=== PATIENT | male | born 1965 | race Caucasian/White ===

== ENCOUNTER 2022-08-30 10:22 | Inpatient (IN) | payer OTHER, SELFPAY ==
[2022-08-30] VITALS (45 sets, daily range): BP systolic 124–185; BP diastolic 59–107; PULSE 49–91; RESP 14–21; TEMP 35.9–36.9; O2SAT 96–100; BMI 32.1; BMI 31.9
--- NOTE | 2022-08-30 07:47 | SUR.PREOP ---
registration called around 0720 (after they told us patient was ready and was brought up to [facility]) stating patient does not have authorization and cannot proceed with procedure. patient/updated and awaiting chairman & chief executive officer office to open to determine plan.
[2022-08-30 08:20] LABS: Basophils Percent Auto 0.2 % (0.2-1.2); Eosinophils Absolute Auto 0.1 K/mm3 (0-0.3); Eosinophils Percent Auto 1.1 % (0-4.4); Hematocrit 47.5 % (42.0-52.0); Hemoglobin 15.7 g/dL (14.0-18.0); Immature Granulocyte Absolute 0.01 K/mm3 (0.00-0.031); Immature Granulocyte Percent A 0.2 % (0-0.5); Lymphocytes Absolute Auto 1.62 K/mm3 (0.9-3.2); Lymphocytes Percent Auto 28.6 % (18.3-44.2); Mean Corpuscular HGB Conc 33.1 g/dl (32-36); Mean Corpuscular Hemoglobin 31.2 pg (26-34); Mean Corpuscular Volume 94.4 fl (80-100); Mean Platelet Volume 9.6 fl (7.4-10.4); Monocytes Absolute Auto 0.5 K/mm3 (0.1-0.6); Monocytes Percent Auto 7.9 % (2.6-8.5); Neutrophils Absolute Auto 3.5 K/mm3 (1.3-6.7); Platelet Count Result 195 k/mm3 (150-375); Red Blood Count 5.03 M/mm3 (4.6-6.20); White Blood Count 5.7 K/mm3 (4.5-10.0)
[2022-08-30 08:29] LABS: Anion Gap 5 mmol/L (8-16); Blood Urea Nitrogen 17 mg/dL (9-20); Calcium 8.9 mg/dL (8.4-10.2); Carbon Dioxide 29 mmol/L (22-30); Chloride 107 mmol/L (98-107); Estimated Glomerular Filt Rate > 60; Glucose 98 mg/dL (65-110); Potassium 4.3 mmol/L (3.4-5.0); Sodium 141 mmol/L (137-145)
[2022-08-30] MEDS: SODIUM CHLORIDE 0.9% IV 500 ML 100 ML IV CONT (08:45)
--- NOTE | 2022-08-30 09:20 | WPDMODSED ---
Moderate Sedation Note-Pt Data Patient Data Diagnosis: Chest pain clinically atypical of angina abnormal nuclear stress test Present Complaint: no complaints this morning Procedure to be performed/Plan: left heart catheterization Allergies Allergy/AdvReac Type Severity Reaction Status Date / Time Penicillins Allergy Unknown Verified 08/30/22 08:16 Home Medications Medication Instructions Recorded Confirmed Type aspirin 81 mg tablet,delayed 81 mg PO DAILY 08/30/22 08/30/22 History release carvedilol 3.125 mg tablet 3.125 mg PO BID 08/30/22 08/30/22 History guselkumab 100 mg/mL subcutaneous 100 mg subcut ONCE 08/30/22 08/30/22 History syringe (Tremfya) ibuprofen 200 mg tablet 400 mg PO Q6H PRN Pain 08/30/22 08/30/22 History Current Medications: Active Medications Sodium Chloride (Normal Saline Iv) 500 mls @ 100 mls/hr IV CONT .Q5H [facility] Sedation/Anesthesia: No previous sedation/anesthesia problems (including family history). [facility] Social History Social History (System 12/02/19 @ 12:56 by Josselyn Nguyen) Smoking packs per day: 1 Smoking cigarettes per day: 20.0 Years smoked: 50 Smoking pack-years: 50.00 Smoking status: Current every day smoker Second hand tobacco smoke exposure: Yes Substance use: current Substance use type: marijuana Living arrangements: alone Spiritual care concerns: No Mod Sed Physical Exam Physical Exam Pre Procedural Exam: Normal: Neck, Throat, Airway, Lungs, Heart Size, Heart Rate, Heart Rhythm, Neuro Exam and Extremities and Variation: Appearance ( overweight white male no apparent distress) Hours since solid foods: 12 Hours since liquid intake: 12 Mallampati Classification: class II Internal Medicine - PN: Obj Da Vital Signs Vital Signs: Vital Signs - 24 hr 08/30/22 08:44 Temperature 36.3 C L Pulse Rate 63 Respiratory Rate 18 Blood Pressure 169/81 H Pulse Oximetry 100 Oxygen Delivery Room Air Meds/Results Medications: Active Medications Generic Name Dose Route Start Last Admin Trade Name Freq PRN Reason Stop Dose Admin Sodium Chloride 500 mls @ 100 mls/hr 08/30/22 07:00 Normal Saline Iv IV CONT .Q5H [facility] Labs 08/30/22 08:14 08/30/22 08:14 Labs: Laboratory Results - last 24 hr 08/30/22 08/30/22 08:14 08:14 WBC 5.7 RBC 5.03 Hgb 15.7 Hct 47.5 MCV 94.4 MCH 31.2 MCHC 33.1 RDW 13.0 Plt Count 195 MPV 9.6 Immature Gran % (Auto) 0.2 Neut % (Auto) 62.0 Lymph % (Auto) 28.6 [place] % (Auto) 7.9 Eos % (Auto) 1.1 Baso % (Auto) 0.2 Lymph # (Auto) 1.62 [place] # (Auto) 0.5 Eos # (Auto) 0.1 Baso # (Auto) 0.0 Abs Immat Gran (auto) 0.01 Absolute Neuts (auto) 3.5 Absolute Nucleated RBC 0.0 Nucleated RBC % 0.0 Sodium 141 Potassium 4.3 Chloride 107 Carbon Dioxide 29 Anion Gap 5 L BUN 17 Creatinine 1.00 Estim Creat Clear Calc Not Reportable Estimated GFR > 60 Glucose 98 Calcium 8.9 ASA Classification/Sedation ASA Classification/Sedation ASA Class: II Emergent: No Risks: Risks, benefits and alternatives explained and patient/family accepted plan for sedation. Patient re-evaluated immediately prior to sedation.
--- NOTE | 2022-08-30 10:22 | ECG_ITS ---
Measurements Intervals [place] Rate: 45 P: -14 VT: 180 QRS: -37 QRSD: 100 T: -15 QT: 454 QTc: 394 Interpretive Statements SINUS BRADYCARDIA LEFT AXIS DEVIATION ST-T WAVE ABNORMALITY IN INFERIOR LEADS- CONSIDER ISCHEMIA BASELINE WANDER- V2-V3 ABNORMAL ECG COMPARED TO ECG 03/02/2019 10:37:21 SINUS BRADYCARDIA NOW PRESENT ST-T WAVE ABNORMALITY NOW PRESENT Electronically Signed On 08-30-2022 11:03:52 ORAL SURGERY TECHNICIAN by Beto Virgen D.O.
--- NOTE | 2022-08-30 10:25 | WPDCARDPROC ---
Cardiac Cath Procedure Note Date of procedure:: 08/30/22 Performing physician:: Juan Penny MD Indication:: chest pain with atypical features for angina Brief clinical history:: this is a 56-year-old man without previous history of coronary disease he does have a remote history of SVT. Recently he has been having intermittent chest pain both with and without exertion. A nuclear stress test was abnormal for inferoseptal ischemia as result of this an angiogram has been recommended Procedure Procedure performed:: left ventriculogram coronary angiogram PCI (CECIL) to the mid LAD Sedation/Medication given:: fentanyl 50 mg Versed 2 mg case start time 9:28 a.m. case end time 10:16 a.m. sedation provided by Vikki Bone RN, trained observer Access site:: right femoral artery Estimated blood loss:: 50 cc Procedure note:: the patient was brought to the cardiac catheterization lab in the postabsorptive state where the right femoral triangle was prepared and draped in the normal fashion. Anesthesia was provided with 1% lidocaine infiltrated locally. Using the modified Seldinger technique a 5 [place] sheath was placed into the right femoral artery and left heart catheterization was carried out. Initially a 5 [place] pigtail catheter was used to measure left-sided hemodynamics and to inject LV g in [place] projection. Following this a standard 5 [place] FL4 catheter was used to engage and inject the left coronary artery in multiple projections and a 5 [place] JR4 catheter was used to engage and inject the right coronary artery. The cineangiograms were then reviewed following which PCI of the LAD with recommended carried out as detailed below prior to PCI 5 [place] sheath was exchanged over a guidewire for 6 [place] sheath. The patient was given aspirin 600 mg of clopidogrel and had bolus and infusion of Angiomax for procedural anticoagulation. Following this PCI of the LAD was carried out as detailed below. The procedure was complicated by occlusion of the 2nd diagonal branch which is also detailed below. 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 The electrocardiogram showed no significant abnormalities on the monitor lead. Patient otherwise was hemodynamically stable there is no evidence of groin hematoma or any other complications following the procedure. Findings:: Hemodynamics: Central aortic pressure is 138 over 70 left ventricle 138/3 end-diastolic 18 there is no systolic gradient on pullback across the aortic valve. Left ventricle: The LV is normal in size all segments contract appropriately the global ejection fraction at visually estimated to be 50% there were no regional wall motion abnormalities. The left main coronary artery is widely patent the left anterior descending is a moderate caliber artery extending down to the apex. The LAD has a high-grade 95% stenosis which is somewhat long tubular stenosis just after the origin of the 2nd diagonal branch. This is a moderate-sized diagonal. The remainder of the LAD is free of significant disease. Circumflex is a moderate caliber artery giving rise to marginal branches the circumflex system appears to be smooth and free of disease. The right coronary artery is moderate to large caliber dominant to the posterior circulation there are minimal luminal irregularities in the RCA but no functionally significant disease is identified. Intervention: The left coronary artery was engaged using a 6 [place] CLS 3.5 guiding catheter. I used a 0.014 BMW coronary guidewire to traverse the target lesion described above the lead wire was advanced into the apical portion of the LAD. The lesion was pre-dilated using a 3.0 x 20 mm noncompliant balloon. The target lesion was then stented using a 3.5 by 22 mm [employer] stent with an excellent anatomical result in the LAD.
--- NOTE | 2022-08-30 10:32 | SUR.PHASEII ---
Pt arrived to [facility] post procedure, pt pale and diaphoretic, reports pain 9/10 to left upper chest. Dr. Penny aware and has previously treated the pt with pain medications in lab aide. Dr. Penny came to bedside and was updated on the pt condition and ordered additional medication and discussed finding with pt and . Pharmacy called to request IV valium that is not stocked in [facility] department. VSS, side rails up x 2, continue to monitor.
[2022-08-30] MEDS: fentaNYL CITRATE INJ (*CRX) 100 MCG/2 ML VIAL 50 MCG IV PUSH ×2 (10:48→14:14)
[2022-08-30] MEDS: SODIUM CHLORIDE 0.9% IV 1,000 ML 125 ML IV CONT (11:05)
[2022-08-30] MEDS: diazePAM INJ (*CRX) 10 MG/2 ML SYRINGE 5 MG IV PUSH (11:05)
--- NOTE | 2022-08-30 11:39 | SUR.PHASEII ---
IV diazepam arrived from pharmacy and medication administered at 1105, pt reports 6/10 pain prior to giving medication. Pt then developed snoring respirations, pt stimulated and air way open and pt responded and O2 sat increased from 89% to 95%, capnography monitoring initiated, oral suctioning available at bedside and supplemental O2 available. Pt now resting comfortably, maintaining airway, O2 sat 98% RA, capnography 38. VSS, at bedside, Dr. Penny notified, continue to monitor.
[2022-08-30] MEDS: NITROGLYCERIN OINTMENT 1 INCH DOSE TRANSDERM (12:33)
[2022-08-30] MEDS: LOSARTAN POTASSIUM 25 MG TABLET PO (12:35)
--- NOTE | 2022-08-30 12:50 | SUR.PHASEII ---
Pt resting in bed, transdermal and PO medications given to help reduce blood pressure in preparation for sheath pull. Pt drowsy, sleeping frequently, awakens and holds chest, reports pain 5/10, denies shortness of breath and nausea. Jocelin Michael TRUCK TRAILER FINAL INSPECTOR notified of pt condition, orders received and initiated, continue to monitor.
[2022-08-30] MEDS: NITROGLYCERIN SL 0.4 MG TABLET SUBLINGUAL (13:18)
[2022-08-30] MEDS: hydrALAZINE HCL 20 MG/ML VIAL IV PUSH (13:43)
--- NOTE | 2022-08-30 14:33 | SUR.PHASEII ---
Pt resting in bed, chest pain decreased to 1/10, visitor at bedside, VSS, NAD noted, side rails up x 2, call light within reach, + pedal pulses, no bleeding or hematoma noted, continue to monitor.
--- NOTE | 2022-08-30 15:17 | SUR.PHASEII ---
Pt resting in bed, visitor at bedside, VSS, NAD noted, IV fluids infusing without difficulty, pt reports he is starting to feel better and chest pain is 1/10, awaiting an ICU bed, no bleeding or hematoma noted, + pedal pulses, continue to monitor.
--- NOTE | 2022-08-30 15:32 | SUR.PHASEII ---
Phase II complete, pt to remain in RN [facility] 5 as ICU status overflow. See PCS for further documentation
--- NOTE | 2022-08-30 15:39 | ADMGEN ---
This patient, Lorenzo Wheat, was admitted to ICU, remains in [facility] as ICU overflow pt. Patient/family oriented to hospital policies and general routines including ID bracelet, bed and alarms, visiting hours, pain management, procedures, bathroom and other care routines, personal items, smoking policy, room service/diet, and visiting hours. See phase II documentation for previous charting. Information on how to activate the Rapid Response Team has been discussed. Patient/Family are encouraged to report perceived risks to care and to ask questions if they do not understand what they are told or what they should do.
[2022-08-30] MEDS: MAG HYDROX/AL HYDROX/SIMETH 30 ML UDC PO (16:04)
--- NOTE | 2022-08-30 16:15 | PC.NURSE ---
patient c/o of 3/10 chest pain after eating his meal. patient is sitting at 30 degrees. I was able to sit him up to 50 degrees and prop him up with a pillow. mylanta ordered and offered to patient, he said he can't do mint and refused it. tums ordered and patient able to tolerate those. patient is sitting up with family at bedside. his chest pain prior to eating was 1/10. Dr. jimenez made aware, no new orders.
[2022-08-30] MEDS: CALCIUM CARBONATE (TUMS) 500 MG (200 MG ELEMENTAL) PO (16:25)
--- NOTE | 2022-08-30 17:33 | ECG_ITS ---
Measurements Intervals [place] Rate: 75 P: 57 [place]: 184 QRS: -14 QRSD: 106 T: 79 QT: 398 QTc: 447 Interpretive Statements SINUS RHYTHM VENTRICULAR PREMATURE COMPLEX AND FREQUENT VENTRICULAR COUPLETS BORDERLINE T WAVE ABNORMALITY- HIGH LATERAL LEADS ABNORMAL ECG COMPARED TO ECG 08/30/2022 11:00:50 SINUS RHYTHM NOW PRESENT VENTRICULAR COUPLETS NOW PRESENT Electronically Signed On 08-30-2022 21:03:04 LOADING MACHINE ADJUSTER by Beto Virgen D.O.
--- NOTE | 2022-08-30 17:39 | ECG_ITS ---
Measurements Intervals [place] Rate: 83 P: 233 DC: 242 QRS: 105 QRSD: 143 T: -57 QT: 417 QTc: 492 Interpretive Statements ACCLERATED JUNCTIONAL RHYTHM LEFT BUNDLE BRANCH BLOCK ABNORMAL ECG COMPARED TO ECG 08/30/2022 17:37:57 ACCLERATED JUNCTIONAL RHYTHM NOW PRESENT LEFT BUNDLE BRANCH BLOCK NO PRESENT Electronically Signed On 09-02-2022 14:11:30 FURNACE PROCESS PLANT OPERATOR by Beto Virgen D.O.
--- NOTE | 2022-08-30 17:45 | PC.NURSE ---
ekg rhythm change noted. 12 lead ekg obtained and contacted dr jimenez, also advised of patient's c/o of 3/10 chest pain and fluttering in his chest. new orders provided by dr hrenandez. dr street should be contacted for any future orders
[2022-08-30] MEDS: AMIODARONE 150 MG/D5W 100 ML 150 MG/100 ML BAG 600 MG IV CONT (17:58)
[2022-08-30] MEDS: AMIODARONE 360 MG/D5W 200 ML 360 MG/200 ML BAG 33.33 MG IV CONT (18:09)
--- NOTE | 2022-08-30 18:24 | PC.NURSE ---
Care transferred to Darlene Mullins RN
--- NOTE | 2022-08-30 19:35 | PC.NURSE ---
REPORT CALLED TO BURTON Soria RN IN ICU. PT. IS TO TRANSFER TO ICU 5 FROM [facility] 5 WHERE HE WAS ADMITTED TO ICU STATUS AFTER LHC W/ PCI. AMIODARONE GTT CONTINUES AT 33.3ML/HR VIA PUMP. REPORTS UPPER CHEST PRESSURE/ACHE AT 2/10 AND IS RELAXED. SKIN WARM, DRY, PINK. R. GROIN SITE SOFT, NONTENDER. NO BLEEDING OR HEMATOMA PRESENT. DRESSING C/D/I. ARRHYTHMIA NOTED ON MONITOR HAS SUBSIDED SINCE GIVEN AMIODARONE 150MG IV BOLUS AND STARTING GTT.
--- NOTE | 2022-08-30 20:01 | PC.NURSE ---
TRANSFERRED PT. VIA BED ON TRANSPORT MONITOR FROM [facility] 5 TO ICU 5 ICU STATUS PT WITH ALL PERSONAL BELONGINGS AND PHONE. BEDREST X 6 HOURS COMPLETE AT 2019. TROPONIN LEVEL REPORTED TO DR. MOREL BY CLARA Farias RN. UPDATES TO BURTON Soria RN ON ARRIVAL. FAMILY AWARE THAT PT. WAS TO BE TRANSFERRED TO ICU.
--- NOTE | 2022-08-30 21:18 | PC.NURSE ---
This patient, Lorenzo Wheat, was received from [ [facility]/5] on 08/30/22 at 1999. Patient/family oriented to unit policies and routines
[2022-08-30] MEDS: METOPROLOL TARTRATE 25 MG TABLET PO (21:55)
[2022-08-30 22:30] LABS: Cholesterol 129 mg/dL (0-200); HDL Direct 24 mg/dL; Triglycerides 99 mg/dL (<150)
[2022-08-30 22:41] LABS: LDL Cholesterol Direct 79 mg/dL
[2022-08-30] MEDS: AMIODARONE 360 MG/D5W 200 ML 360 MG/200 ML BAG 16.67 MG IV CONT (23:33)
[2022-08-31] VITALS (57 sets, daily range): BP systolic 119–169; BP diastolic 71–99; PULSE 57–78; RESP 4–34; TEMP 36.4–37.1; O2SAT 95–100; BMI 32.5
--- NOTE | 2022-08-31 | ECHO_ITS ---
Patient Info Name: Lorenzo Wheat Age: 56 years : 1965 Gender: Male Ht: 75 in Wt: 259 lbs BSA: 2.52 m2 HR: 60 bpm Technical Quality: Fair Exam Date: 08/31/2022 10:07 AM Exam Location: [facility] Pulmonary Patient Status: Inpatient Admit Date: 08/30/2022 Staff Ordering Physician: Tom Ponce MD Retirement Actuary: Virginia Horne RDCS Attending Provider: Juan Penny MD Exam Type: CA echo doppler color flow Study Info Complete two-dimensional, color flow and Doppler transthoracic echocardiogram is performed with contrast to opacify the left ventricle and to improve the deliniation of the left ventricle endocardial borders. Contrast/Agitated Saline Contrast/Ag. Saline: Definity Amount: 4.00 ml Summary 1. Normal LV size, mild LVH. Normal overall LV systolic function with segmental wall motion abnormality. Mid-distal anterior, anterolateral and apical severe hypokinesis. Ejection fraction about 55-60%. Normal diastolic function. No significant valvular abnormality. Unable to assess RVSP due to inadequate TR jet. Sinus bradycardia. Left Ventricle Left ventricular chamber dimension is normal. Left ventricular systolic function is normal, estimated at 55-60%. There is mildly increased left ventricular wall thickness. The left ventricular diastolic function is normal. Right Ventricle Right ventricular chamber dimension is normal. Right ventricular systolic function is normal. Left Atria Left atrial chamber dimension is mildly enlarged. Right Atria Right atrial chamber dimension is normal. Aortic Valve The aortic valve is not well visualized. There is no aortic valve stenosis. Pulmonic Valve The pulmonic valve is not well visualized. Mitral Valve The mitral valve has normal leaflets. There is no mitral valve regurgitation. Tricuspid Valve The tricuspid valve leaflets are normal. There is trace tricuspid valve regurgitation. Pericardium/Pleural The pericardium appears epicardial fat pad. Aorta The aortic root size at the sinus of Valsalva is normal. Left Ventricular Outflow Tract Name Value Normal LVOT 2D LVOT Diameter 2.5 cm LVOT Doppler LVOT Peak Gradient 3 mmHg LVOT Mean Gradient 2 mmHg LVOT VTI 19 cm LVOT VTI/AV VTI Ratio 0.8 LVOT Stroke Volume 91 ml LVOT CO 5.6 l/min LVOT CI 2.2 l/min/m2 Pulmonic Valve Name Value Normal PV Doppler PV Peak Gradient 3 mmHg Mitral Valve Name Value Normal
--- NOTE | 2022-08-31 05:11 | ECG_ITS ---
Measurements Intervals [place] Rate: 62 P: 5 TN: 169 QRS: -47 QRSD: 117 T: 108 QT: 436 QTc: 444 Interpretive Statements SINUS RHYTHM LEFT ANTERIOR FASCICULAR BLOCK CANNOT RULE OUT SEPTAL INFARCT, AGE INDETERMINATE BORDERLINE ST-T WAVE ABNORMALITY- ANTEROLAT/HIGH LAT LEADS ABNORMAL ECG COMPARED TO ECG 08/30/2022 17:39:18 SINUS RHYTHM NOW PRESENT LEFT ANTERIOR FASCICULAR BLOCK NOW PRESENT Electronically Signed On 08-31-2022 9:55:05 SEWER CONTRACTOR by Beto Virgen D.O.
[2022-08-31] MEDS: ASPIRIN 81 MG CHEWABLE TABLET PO (08:01)
[2022-08-31] MEDS: ROSUVASTATIN 10 MG TABLET 20 MG PO (08:01)
[2022-08-31] MEDS: CALCIUM CARBONATE (TUMS) 500 MG (200 MG ELEMENTAL) PO (08:02)
[2022-08-31] MEDS: CLOPIDOGREL BISULFATE 75 MG TABLET PO (08:02)
[2022-08-31] MEDS: METOPROLOL TARTRATE 25 MG TABLET PO ×2 (08:04→21:38)
--- NOTE | 2022-08-31 08:52 | WPDCNINT ---
Assessment and Plan Assessment and plan (1) Myocardial infarction: Code(s): I21.9 - Acute myocardial infarction, unspecified Status: Acute Assessment and Plan: Patient had a abnormal stress test done as an outpatient. Patient underwent elective cardiac catheterization 08/30 which showed 95% stenosis of mid LAD. Patient underwent PCI to the target lesion in the LAD resulting in excellent anatomic result in the LAD itself but plaque shifting and occlusion of the 2nd diagonal branch which resulted in a procedure- related infarction of that vessel from 100% occlusion as a result of the PCI to treat the LAD lesion. Postprocedure patient was having chest pain Currently chest pain-free Will get Echocardiogram Continue aspirin Plavix Cozaar metoprolol and Crestor Telemetry monitoring (2) Ventricular arrhythmia: Code(s): I49.9 - Cardiac arrhythmia, unspecified Status: Acute Assessment and Plan: Currently on amiodarone infusion (3) Coronary artery disease: Code(s): I25.10 - Atherosclerotic heart disease of [place] coronary artery without angina pectoris Status: Acute Assessment and Plan: See above Plan DVT prophylaxis -patient expected to ambulate Nutrition -cardiac diet Code Status - Full Code Transfer out of ICU today Grocery Associate Consult Note Consult date: 08/31/22 Reason for consult: Acute DE HPI: Lorenzo Wheat is a 56 year old male with past medical history of SVT status post ablation many years ago and smoking had abnormal stress test done as an outpatient which showed abnormality in inferior septal area. Patient underwent elective cardiac catheterization yesterday which showed 95% stenosis of mid LAD. Patient underwent PCI to the target lesion in the LAD resulting in excellent anatomic result in the LAD itself but plaque shifting and occlusion of the 2nd diagonal branch which resulted in a procedure- related infarction of that vessel from 100% occlusion as a result of the PCI to treat the LAD lesion. Postprocedure patient was having chest pain and was admitted to ICU for further evaluation management. Patient also was having PVCs and was started on amiodarone infusion. Patient states that he was having chest pain 8 to 10/10 during the procedure which improved to 4 to 5/10 in the ICU. Pain was tightness in quality, no radiation, no aggravating or relieving factors. He did not had any nausea vomiting shortness of breath along with the. This morning he states his pain is completely resolved and he denies any complaints at this time. Patient denies fever, shortness of breath, cough, nausea vomiting, abdominal pain,, diarrhea, headache or constipation. All other systems were reviewed and were negative. He continues to be on amiodarone infusion and has sinus bradycardia on the monitor. Review of Systems Review of Systems: All systems reviewed & are unremarkable except as noted in HPI and below (HPI) [facility] Past Medical History Medical History (Updated 08/31/22 @ 08:58 by Tom Ponce MD) Psoriasis SVT (supraventricular tachycardia) Status post ablation at [facility] Family History Family History Mother Parkinsons Dementia Diabetes mellitus Father Diabetes mellitus Lung cancer Heart problem Social History Social History (System 12/02/19 @ 12:56 by Josselyn Nguyen) Smoking packs per day: 1 Smoking cigarettes per day: 20.0 Years smoked: 50 Smoking pack-years: 50.00 Smoking status: Current every day smoker Tobacco type: cigarettes Second hand tobacco smoke exposure: Yes Alcohol intake: current Substance use: current Substance use type: marijuana Lack of Transportation: No Lack of Food: Never True Current Housing: I Have Housing Concerned About Future Housing: No Difficulty Paying Gas/Electric Bills: No Difficulty Paying for Meds: No Current
[2022-08-31] MEDS: LOSARTAN POTASSIUM 25 MG TABLET PO (09:01)
[2022-08-31] MEDS: PERFLUTREN LIPID MICROSPHERES 1.5 ML VIAL DILUTED TO 10 ML TOTAL VOLUME IV PUSH (09:45)
--- NOTE | 2022-08-31 10:28 | PM.PNCARD ---
Progress Note: A&P Assessment and Plan (1) Myocardial infarction: Code(s): I21.9 - Acute myocardial infarction, unspecified Status: Acute Assessment and Plan: Patient underwent PCI/stenting of LAD in the setting of angina and abnormal MPI. He has post PCI ME due to jailing of diagonal branch which originated in the stented segment of the LAD. Significant troponin elevation. Chest pain resolved. -continue dual antiplatelet therapy with aspirin and clopidogrel. Continue beta-birgit. Unable to increase the dose of beta-birgit due to relatively lower heart rates. Blood pressure elevated, add losartan 50 mg p.o. daily. -discontinue amiodarone. -transfer to IMU, continue to monitor on telemetry. -anticipated discharge tomorrow if clinically stable. Subjective Date/time seen: 08/31/22 10:28 Interval history: Date of service 08/31/2022-patient had ME post PCI due to diagonal branch jailing. Significant troponin elevation. On telemetry, he is in sinus rhythm. At the time of evaluation, he denied any ongoing chest pain. Exam Narrative: PHYSICAL EXAMINATION: GENERAL: Obese, Alert, oriented, no acute distress MENTAL STATUS: affect appropriate to mood EYES: Extraocular movements intact, no pallor EARS: External ears appear normal, hearing grossly normal NOSE: Normal and patent, no discharge MOUTH: Mucous membranes moist, tongue normal NECK: Supple, no JVD CHEST: Good respiratory effort, clear to auscultation HEART: Normal rate, regular rhythm, normal S1 and S2, no audible murmurs ABDOMEN: Soft, nontender NEUROLOGICAL: Alert, oriented, normal speech, no gross motor deficits MUSCULOSKELETAL: No major deformity, no amputation EXTREMITIES: No pedal edema, no clubbing, no cyanosis; groin site unremarkable SKIN: no rash on the exposed area, no cyanosis PSYCHIATRIC: Normal mood, appropriate affect Objective Data Vital Signs Vital Signs: Vital Signs - 24 hr 08/30/22 10:32 08/30/22 10:32 08/30/22 10:45 Temperature 35.9 C L Pulse Rate 49 L 50 L Pulse Rate [Right Pedal (Dorsalis Pedis) Doppler] 49 L Respiratory Rate 15 17 Blood Pressure 177/104 H 162/102 H Pulse Oximetry 100 98 Oxygen Delivery Room Air Room Air 08/30/22 11:15 08/30/22 11:15 08/30/22 11:45 Temperature Pulse Rate 58 L 53 L Pulse Rate [Right Pedal (Dorsalis Pedis) Doppler] 58 L Respiratory Rate 18 19 Blood Pressure 181/107 H 170/100 H Pulse Oximetry 98 97 Oxygen Delivery Room Air Room Air 08/30/22 11:45 08/30/22 12:00 08/30/22 12:00 Temperature Pulse Rate 62 Pulse Rate [Right Pedal (Dorsalis Pedis) Doppler] 53 L 62 Respiratory Rate 15 Blood Pressure 176/106 H Pulse Oximetry 99 Oxygen Delivery Room Air 08/30/22 12:15 08/30/22 12:15 08/30/22 12:30 Temperature Pulse Rate 59 L 54 L Pulse Rate [Right Pedal (Dorsalis Pedis) Doppler] 59 L Respiratory Rate 18 19 Blood Pressure 171/103 H 175/94 H Pulse Oximetry 98 98 Oxygen Delivery Room Air Room Air 08/30/22 12:30 08/30/22 11:00 08/30/22 11:30 Temperature Pulse Rate 55 L 59 L Pulse Rate [Right Pedal (Dorsalis Pedis) Doppler] 57 L Respiratory Rate 18 18 Blood Pressure 165/88 H 185/105 H Pulse Oximetry 98 98 Oxygen Delivery Room Air Room Air 08/30/22 11:30 08/30/22 12:45 08/30/22 13:00 Temperature Pulse Rate 56 L 62 Pulse Rate [Right Pedal (Dorsalis Pedis) Doppler] 59 L Respiratory Rate 19 16 Blood Pressure 172/103 H 167/100 H Pulse Oximetry 100 98 Oxygen Delivery Room Air Room Air 08/30/22 13:15 08/30/22 13:50 08/30/22 13:55 Temperature Pulse Rate 57 L 62 59 L Pulse Rate [Right Pedal (Dorsalis Pedis) Doppler] Respiratory Rate 18 19 17 Blood Pressure 157/95 H 137/59 L 128/74 Pulse Oximetry 97 100 99 Oxygen Delivery Room Air Room Air Room Air 08/30/22 14:00 08/30/22 14:05 08/30/22 14:10 Temperature Pulse Rate 61 58 L 60 Pulse Rate [Right Pedal (Dorsalis Pedis)
[2022-09-01] VITALS (7 sets, daily range): BP systolic 132–148; BP diastolic 81; PULSE 55–64; RESP 16–20; TEMP 36.3–36.5; O2SAT 99; BMI 31.2
[2022-09-01] MEDS: METOPROLOL TARTRATE 25 MG TABLET PO (08:47)
[2022-09-01] MEDS: ROSUVASTATIN 10 MG TABLET 20 MG PO (08:47)
[2022-09-01] MEDS: ASPIRIN 81 MG CHEWABLE TABLET PO (08:48)
[2022-09-01] MEDS: CLOPIDOGREL BISULFATE 75 MG TABLET PO (08:48)
[2022-09-01] MEDS: LOSARTAN POTASSIUM 50 MG TABLET PO (08:48)
--- NOTE | 2022-09-01 10:45 | PM.DS ---
DS: Admitting Diagnosis Discharge Date 09/01/2022 Admitting Diagnosis Angina DS: Discharge Diagnosis Discharge Diagnosis Plan Angina CAD DS: Summary Hospital Course Hospital Course: 56-year-old male with CAD. He underwent PCI/stenting of LAD on 08/30/2022 in the setting of angina and abnormal MPI.? He has post PCI RI due to jailing of diagonal branch which originated in the stented segment of the LAD.? He was found to have significant troponin elevation post PCI.? Patient was admitted for observation. Initially, patient had chest discomfort, which subsequently resolved during hospitalization. On the day of discharge, patient was clinically and hemodynamically stable without any ongoing cardiac ischemic symptoms and was eager to go home. His echocardiogram showed overall preserved ejection fraction with segmental wall motion abnormality. He was continued on dual antiplatelet therapy with aspirin and clopidogrel. Unable to increase the dose of beta-birgit due to relatively lower heart rate. Blood pressure was elevated and losartan was added to the medical regimen. Statin dose was optimized. Time Spent with Patient Time attestation: Total time spent providing and/or coordinating discharge services: Time spent: Greater than 30 minutes Exam Narrative: PHYSICAL EXAMINATION: GENERAL: Alert, oriented, no acute distress MENTAL STATUS: affect appropriate to mood EYES: Extraocular movements intact, no pallor EARS: External ears appear normal, hearing grossly normal NOSE: Normal and patent, no discharge MOUTH: Mucous membranes moist, tongue normal NECK: Supple, no JVD CHEST: Good respiratory effort, clear to auscultation HEART: Normal rate, regular rhythm, normal S1 and S2, no audible murmurs ABDOMEN: Soft, nontender NEUROLOGICAL: Alert, oriented, normal speech, no gross motor deficits MUSCULOSKELETAL: No major deformity, no amputation EXTREMITIES: No pedal edema, no clubbing, no cyanosis; groin site unremarkable SKIN: no rash on the exposed area, no cyanosis PSYCHIATRIC: Normal mood, appropriate affect Discharge Plan Discharge Attending physician on discharge: Devin Anderson Discharging Clinician: Devin Anderson Patient Disposition: Home, Self-Care Activity: no straining Diet: heart healthy Discharge Instructions: 1. Do not drive for next 1 day. 2. Do not lift weights more than 5 lb for [address] Penny's office and make an appointment in next 3-4 weeks. 4. Be compliant with all the medications as prescribed. Importance of antiplatelet treatment was emphasized with the patient and he verbalized understanding. Stand Alone Forms: General Discharge Information Follow-up/Referrals: Juan Penny MD [Physician] - (Patient advised to call Dr. Penny's office tomorrow to make an appointment. He verbalized understanding.) Discharge Medications: New clopidogrel 75 mg Tablet 75 mg PO DAILY Qty: 30 3RF losartan [Cozaar] 50 mg Tablet 50 mg PO DAILY Qty: 30 3RF rosuvastatin [Crestor] 10 mg Tablet 40 mg PO QAM Qty: 30 3RF Continued carvedilol 3.125 mg tablet 3.125 mg PO BID Tremfya 100 mg/mL Syringe 100 mg SUBCUT ONCE Rx Instructions: takes every other month, last dose approx Jul 14, 2022. aspirin 81 mg Tablet,Delayed Release (Dr/Ec) 81 mg PO DAILY Qty: 30 3RF Discontinued ibuprofen 200 mg Tablet 400 mg PO Q6H PRN (Reason: Pain) Rx Instructions: takes rarely, but when does may take up to 1600mg orally. Date of admission: 08/30/22 10:22 Primary Care Provider: PHYSICIAN,ATHLETIC COACH Admitting Provider: Juan Penny Attending physician on admission: Juan Penny Condition: Stable
== END 2022-09-01 11:19 | disposition home or self-care (01) | DRG 175 ==
LOC: ANHCATHLAB 15:05 → ANHCPC 15:31 → ANHICU 20:29 → ANHIMU 08-31 12:15
PROVIDERS: Internal Medicine Cardiovascular Disease; Admitting Provider Specialist; Visit Provider Internal Medicine Cardiovascular Disease
PROC: 4A023N7 Measurement of Cardiac Sampling and Pressure, Left Heart, Percutaneous Approach (ICD-10-PCS; CPT 93452; principal; 2022-08-30 08:30)
PROC: 027034Z Dilation of Coronary Artery, One Artery with Drug-eluting Intraluminal Device, Percutaneous Approach (ICD-10-PCS; 2022-08-30 08:30)
DX: I97.790 Other intraoperative cardiac functional disturbances during cardiac surgery (principal); I21.A9 Other myocardial infarction type; Y83.8 Other surgical procedures as the cause of abnormal reaction of the patient, or of later complication, without mention of misadventure at the time of the procedure; I25.119 Atherosclerotic heart disease of native coronary artery with unspecified angina pectoris; E66.9 Obesity, unspecified; Z68.31 Body mass index [BMI] 31.0-31.9, adult
CPT/HCPCS: 36415; 80048; 80061; 84484; 85025; 93005; 93458; A9270; C1725; C1769; C1887; C1894; C8929; C9600; J0282; J0360; J0583; J1644; J2250; J2270; J3010; J3360; J7030; J7040; Q9957